=== PATIENT | male | born 1965 | race Two or more races ===

== ENCOUNTER 2022-09-25 11:11 | Day surgery (SDC) | payer OTHER ==
[2022-09-24 11:02] LABS: Basophils # (auto) 0 10 ^3/uL (0-0.2); Basophils % (auto) 0.3 % (0.0-2.0); Eosinophils # (auto) 0.1 10 ^3/uL (0-0.8); Eosinophils % (auto) 2.1 % (0.0-7.0); Hematocrit 39.6 % (41.0-53.0); Hemoglobin 13.6 g/dL (13.5-17.5); Lymphocytes # (auto) 1.4 10 ^3/uL (0.4-5.4); Lymphocytes % (auto) 23.8 % (10.0-50.0); Mean Corpuscular Hemoglobin 30.3 pg (28.0-32.0); Mean Corpuscular Hgb Conc. 34.3 g/dL (32.0-36.0); Mean Corpuscular Volume 88.3 fL (80.0-100.0); Monocytes # (auto) 0.6 10 ^3/uL (0-1.3); Monocytes % (auto) 9.4 % (0.0-12.0); Neutrophils # (auto) 3.8 10 ^3/uL (1.6-8.6); Neutrophils % (auto) 64.4 % (37.0-80.0); Red Blood Cells 4.48 10^6/uL (4.5-5.90); Red Cell Distribution Width 13.6 % (11.8-14.3); White Blood Cell 5.9 10^3/uL (4.4-10.8)
[2022-09-24 11:11] LABS: Albumin 3.8 g/dL (3.4-5.0); Calcium 8.7 mg/dL (8.5-10.1); Potassium 4.2 mmol/L (3.5-5.1)
[2022-09-24 11:16] LABS: Bilirubin, Total 0.3 mg/dL (0.2-1.0); Total Protein 7.8 g/dL (6.4-8.2)
[2022-09-24 11:41] LABS: Urine Bacteria NONE SEEN /hpf (None Seen); Urine Blood TRACE /uL (Negative); Urine Hyaline Cast FEW /lpf (0 - 2); Urine Mucus FEW (None Seen); Urine Specific Gravity 1.022 (1.001-1.035); Urine WBC 1 /hpf (0 - 3)
[2022-09-24 11:53] LABS: INR 0.95 (0.9-1.15); Partial Thromboplastin Time 44.2 sec (24.6-33.4)
[2022-09-24 14:53] LABS: BUN/Creatinine Ratio 16.3
[~2022-09-25] VITALS: Ht 175.3 cm; Wt 114.8 kg
[~2022-09-25 11:11] MED LIST: BICA50TA41 PO; LISI-285
[2022-09-25] MEDS ORDERED: CIPROFLOXACIN 400MG/200ML 200 ML IV ONE (12:43)
[2022-09-25] MEDS ORDERED: LIDOCAINE 2%HCL (LOCAL ANESTH.) INJ 10ml MDV ONE (12:51)
[2022-09-25] MEDS ORDERED: LIDOCAINE 2% (LOCAL ANESTH.) PF 5ml SDV ONE (13:10)
[2022-09-25] MEDS ORDERED: KETOROLAC TROMETH 30 MG/ML 1ML VIAL ONE (13:10)
[2022-09-25] MEDS ORDERED: GLYCOPYRROLATE 0.2 MG/ML 1ML VIAL ONE (13:10)
[2022-09-25] MEDS ORDERED: DexAMETHasone SOD PHOS 10MG/1ML VIAL INJ ONE (13:10)
[2022-09-25] MEDS ORDERED: ONDANSETRON HCL 4 MG/2 ML VIAL ONE (13:10)
[2022-09-25] MEDS ORDERED: PROPOFOL 10 MG/ML 20 ML IV ONE ×2 (13:10→13:19)
[2022-09-25] MEDS ORDERED: ePHEDrine SULFATE 50 MG/ML AMP ONE (13:32)
[2022-09-25] MEDS ORDERED: SODIUM CHLORIDE LOCK 10 ML ONE (13:32)
[2022-09-25] MEDS ORDERED: NALOXONE HCL 0.4 MG/ML VIAL IV PRN (15:00)
[2022-09-25] MEDS ORDERED: ePHEDrine SULFATE 50 MG/ML AMP IV PRN (15:00)
[2022-09-25] MEDS ORDERED: hydrALAZINE HCL 20 MG/ML VL IV PRN (15:00)
[2022-09-25] MEDS ORDERED: fentaNYL CITRATE 100 MCG/2 ML VL IV PRN (15:00)
[2022-09-25] MEDS ORDERED: LABETALOL HCL 5 MG/ML 4ML SYRINGE IV PRN (15:00)
[2022-09-25] MEDS ORDERED: ONDANSETRON HCL 4 MG/2 ML VIAL IV PRN (15:00)
[2022-09-25] MEDS ORDERED: FLUMAZENIL 0.1 MG/ML INJ 10ML MDV IV PRN (15:00)
[2022-09-25] MEDS ORDERED: HYDROmorphone HCL 2 MG/ML VL/or syr IV PRN (15:00)
[2022-09-25 15:03] VITALS: BP 143/68
== END 2022-09-25 15:45 | disposition home or self-care (01) ==
LOC: SUR 11:11
PROVIDERS: ATTEND Urology
DX: N21.0 Calculus in bladder (principal); N35.819 Other urethral stricture, male, unspecified site; Z85.46 Personal history of malignant neoplasm of prostate; Z20.822 Contact with and (suspected) exposure to COVID-19
CPT/HCPCS: 36415; 52276; 74176; 80053; 81001; 82962; 85025; 85610; 85730; 87086; 88300; J0744; J1100; J1885; J2001; J2405; J2704; U0003

== ENCOUNTER 2024-04-13 12:09 | Inpatient (IN) | payer OTHER ==
[~2024-04-13] VITALS: Ht 30.5 cm; Wt 111.3 kg
[2024-04-13 12:39] LABS: Urine Bacteria FEW /hpf (None Seen); Urine Blood 3+ /uL (Negative); Urine Clarity Ex.Turbid (Clear); Urine Color Dark-Brown (Yellow); Urine Mucus FEW (None Seen); Urine Protein, UAD 1+ (Negative); Urine Specific Gravity 1.024 (1.001-1.035); Urine Urobilinogen Normal (Negative); Urine WBC 219 /hpf (0 - 3); Urine WBC Clumps PRESENT /hpf (None Seen)
[2024-04-13 13:36] LABS: Basophils # (auto) 0 10 ^3/uL (0-0.2); Eosinophils # (auto) 0 10 ^3/uL (0-0.8); Lymphocytes # (auto) 0.6 10 ^3/uL (0.4-5.4); Monocytes # (auto) 0.6 10 ^3/uL (0-1.3); Nucleated Red Blood Cells % 0.1 %; White Blood Cell 3.9 10^3/uL (4.4-10.8)
[2024-04-13 13:38] LABS: Basophils % (auto) 0.2 % (0.0-2.0); Eosinophils % (auto) 0.1 % (0.0-7.0); Hematocrit 37.6 % (41.0-53.0); Hemoglobin 11.9 g/dL (13.5-17.5); Lymphocytes % (auto) 15.2 % (10.0-50.0); Mean Corpuscular Hemoglobin 23.4 pg (28.0-32.0); Mean Corpuscular Hgb Conc. 31.8 g/dL (32.0-36.0); Mean Corpuscular Volume 73.7 fL (80.0-100.0); Monocytes % (auto) 16.7 % (0.0-12.0); Neutrophils # (auto) 2.6 10 ^3/uL (1.6-8.6); Neutrophils % (auto) 67.8 % (37.0-80.0)
[2024-04-13] MEDS: cefTRIAXone 1GM/50ML D5W 50 ML IV ONE (13:46)
[2024-04-13] MEDS: ONDANSETRON HCL 4 MG/2 ML VIAL IV ONE (13:47)
[2024-04-13] MEDS: SODIUM CHLORIDE 0.9% 1,000 ML IV ONE (13:47)
[2024-04-13 13:53] VITALS: PULSE 81; RESP 14; O2SAT 97
[2024-04-13 14:01] LABS: Lactic Acid w/Reflex 3.3 mmol/L (0.4-2.0)
[2024-04-13 14:28] LABS: Alanine Aminotransferase 18 U/L (7-40); Albumin 4.7 g/dL (3.2-4.8); Alkaline Phosphatase 77 U/L (46-116); Anion Gap 13 (5-15); Aspartate Aminotransferase 13 U/L (13-40); BUN/Creatinine Ratio 19.3 (10.0-20.0); Bilirubin, Total 0.7 mg/dL (0.2-1.0); Blood Urea Nitrogen 29 mg/dL (9-23); Calcium 9.4 mg/dL (8.7-10.4); Carbon Dioxide 21 mmol/L (20-30); Chloride 104 mmol/L (98-107); Glucose 198 mg/dL (74-106); Lipase 27 U/L (12-53); Potassium 4.1 mmol/L (3.5-5.1); Sodium 138 mmol/L (136-145); Total Protein 8.2 g/dL (5.7-8.2)
[2024-04-13] MEDS: fentaNYL CITRATE 100 MCG/2 ML VL IV ONE (15:39)
[2024-04-13] MEDS: LACTATED RINGER'S 1,000 ML IV ONE (17:57)
[2024-04-13] MEDS: PANTOPRAZOLE 40 MG/10 ML VIAL INJ IV SCH (17:57)
[2024-04-13 18:00] VITALS: PULSE 103; RESP 25; O2SAT 96
[2024-04-13] MEDS: metroNIDAZOLE 500MG/100ML 100 ML IV SCH (18:33)
[2024-04-13] MEDS: ONDANSETRON HCL 4 MG/2 ML VIAL IV PRN (21:08)
[2024-04-13] MEDS: D5W/LACTATED RINGERS 1,000 ML IV ONE (21:09)
[2024-04-13] MEDS: HYDROmorphone HCL 2 MG/ML VL/or syr IV PRN (21:09)
[2024-04-13 21:59] VITALS: O2SAT 95
[2024-04-13] MEDS: SODIUM CHLOR 0.9% PF (SALINE LOCK) 10ML VIAL/SYR IV SCH (22:05)
[2024-04-13 22:48] VITALS: BP 132/58; PULSE 92; RESP 18; TEMP 98.5; O2SAT 93
[2024-04-14] VITALS (8 sets, daily range): BP systolic 112–149; BP diastolic 65–76; PULSE 87–107; RESP 16–20; TEMP 98.1–99.2; O2SAT 95–100
[2024-04-14] MEDS ORDERED: GASTROGRAFIN 120 ML SOL ONE (09:10)
[2024-04-14] MEDS: cefTRIAXone 1GM/50ML D5W 50 ML IV SCH (11:15)
[2024-04-14 11:39] LABS: Anion Gap 7 (5-15); Carbon Dioxide 25 mmol/L (20-30); Chloride 110 mmol/L (98-107); Potassium 3.7 mmol/L (3.5-5.1); Sodium 142 mmol/L (136-145)
[2024-04-14 11:40] LABS: Calcium 9.2 mg/dL (8.7-10.4)
[2024-04-14 11:46] LABS: BUN/Creatinine Ratio 26.1 (10.0-20.0); Blood Urea Nitrogen 24 mg/dL (9-23); Glucose 139 mg/dL (74-106)
[2024-04-14] MEDS: SOD CHL 0.45% 1,000 ML IV SCH (17:45)
[2024-04-14] MEDS ORDERED: hydrALAZINE HCL 20 MG/ML VL IV PRN (19:15)
[2024-04-14] MEDS ORDERED: DEXTROSE (50%) 50ML SYRG IV PRN (19:15)
[2024-04-14] MEDS: InsuLIN REG 1unit/0.01ml Soln (100units/ml) SC SCH (22:00)
[2024-04-14] MEDS: ACCU-CHEK COMFORT CURVE STRIP VI SCH (22:42)
[2024-04-15] VITALS (9 sets, daily range): BP systolic 105–137; BP diastolic 55–98; PULSE 70–92; RESP 16–20; TEMP 97.7–98.7; O2SAT 95–97
[2024-04-15 06:34] LABS: Hemoglobin 8.9 g/dL (13.5-17.5); White Blood Cell 3.9 10^3/uL (4.4-10.8)
[2024-04-15 06:37] LABS: Mean Corpuscular Hemoglobin 23.5 pg (28.0-32.0); Mean Corpuscular Hgb Conc. 31.9 g/dL (32.0-36.0); Mean Corpuscular Volume 73.9 fL (80.0-100.0); Red Blood Cells 3.79 10^6/uL (4.5-5.90); Red Cell Distribution Width 19.9 % (11.8-14.3)
[2024-04-15 06:50] LABS: Anion Gap 6 (5-15); Carbon Dioxide 26 mmol/L (20-30); Chloride 109 mmol/L (98-107); Potassium 3.5 mmol/L (3.5-5.1); Sodium 141 mmol/L (136-145)
[2024-04-15 06:51] LABS: Calcium 8.5 mg/dL (8.7-10.4)
[2024-04-15 06:54] LABS: Band Neutrophils % (manual) 0; Basophils % (manual) 0 (0.0-2.0); Blast Cells 0; Metamyelocytes % 0; Myelocytes % 0; Promyelocytes % 0; Reactive Lymphocytes 0
[2024-04-15 06:56] LABS: BUN/Creatinine Ratio 24.4 (10.0-20.0); Blood Urea Nitrogen 19 mg/dL (9-23); Glucose 109 mg/dL (74-106)
[2024-04-15 08:02] LABS: Hypochromia Slight; Platelet Estimate Adequate
[2024-04-15 08:19] LABS: Eosinophils % (manual) 4 (0-7); Lymphocytes % (manual) 23 (10.0-50.0); Monocytes % (manual) 9 (0-12)
[2024-04-15 15:49] LABS: Basophils # (auto) 0 10 ^3/uL (0-0.2); Basophils % (auto) 0.5 % (0.0-2.0); Eosinophils # (auto) 0.2 10 ^3/uL (0-0.8); Hematocrit 29.2 % (41.0-53.0); Hemoglobin 9.1 g/dL (13.5-17.5); Lymphocytes # (auto) 1.7 10 ^3/uL (0.4-5.4); Lymphocytes % (auto) 35.5 % (10.0-50.0); Mean Corpuscular Hemoglobin 23.2 pg (28.0-32.0); Mean Corpuscular Hgb Conc. 31.1 g/dL (32.0-36.0); Mean Corpuscular Volume 74.4 fL (80.0-100.0); Monocytes # (auto) 0.8 10 ^3/uL (0-1.3); Monocytes % (auto) 15.5 % (0.0-12.0); Neutrophils # (auto) 2.2 10 ^3/uL (1.6-8.6); Neutrophils % (auto) 44.5 % (37.0-80.0); Nucleated Red Blood Cells % 0.2 %; Red Blood Cells 3.93 10^6/uL (4.5-5.90); White Blood Cell 4.9 10^3/uL (4.4-10.8)
[2024-04-15] MEDS: PANTOPRAZOLE 40 MG TAB PO ONE (19:23)
[2024-04-16] VITALS (7 sets, daily range): BP systolic 119–154; BP diastolic 65–84; PULSE 65–80; RESP 20; TEMP 36.9; O2SAT 95–97
[2024-04-16] MEDS: PANTOPRAZOLE 40 MG TAB PO SCH (06:07)
[2024-04-16 07:29] LABS: Calcium 8.4 mg/dL (8.7-10.4); Chloride 106 mmol/L (98-107); Potassium 3.4 mmol/L (3.5-5.1); Sodium 139 mmol/L (136-145)
[2024-04-16 07:30] LABS: Anion Gap 8 (5-15); Carbon Dioxide 25 mmol/L (20-30)
[2024-04-16 07:35] LABS: BUN/Creatinine Ratio 15.5 (10.0-20.0); Blood Urea Nitrogen 11 mg/dL (9-23); Glucose 114 mg/dL (74-106)
[2024-04-16 07:36] LABS: Basophils # (auto) 0 10 ^3/uL (0-0.2); Basophils % (auto) 0.2 % (0.0-2.0); Eosinophils # (auto) 0.1 10 ^3/uL (0-0.8); Eosinophils % (auto) 2.8 % (0.0-7.0); Hematocrit 28.7 % (41.0-53.0); Hemoglobin 9.2 g/dL (13.5-17.5); Lymphocytes # (auto) 1.3 10 ^3/uL (0.4-5.4); Lymphocytes % (auto) 26.3 % (10.0-50.0); Mean Corpuscular Hemoglobin 23.7 pg (28.0-32.0); Mean Corpuscular Hgb Conc. 32.2 g/dL (32.0-36.0); Mean Corpuscular Volume 73.5 fL (80.0-100.0); Monocytes # (auto) 0.6 10 ^3/uL (0-1.3); Monocytes % (auto) 11.9 % (0.0-12.0); Neutrophils # (auto) 2.9 10 ^3/uL (1.6-8.6); Neutrophils % (auto) 58.8 % (37.0-80.0); Nucleated Red Blood Cells % 0.1 %; Red Cell Distribution Width 19.6 % (11.8-14.3)
[2024-04-16 14:17] LABS: % Iron Saturation 7.4 % (20-55)
[2024-04-16] MEDS: POTASSIUM CHL 20 Meq TABLET PO ONE (16:21)
[2024-04-16] MEDS ORDERED: PANT40TA2 PO (22:39)
[2024-04-16] MEDS ORDERED: CEFD300C2 PO (22:39)
== END 2024-04-16 17:40 | disposition home or self-care (01) | DRG 388 ==
LOC: ER 12:09 → TELE 17:11 → TELE-WESTW 22:10
PROVIDERS: ADMIT Internal Medicine; ATTEND Internal Medicine
DX: K56.7 Ileus, unspecified (principal); N17.0 Acute kidney failure with tubular necrosis; N30.01 Acute cystitis with hematuria; K52.9 Noninfective gastroenteritis and colitis, unspecified; N42.89 Other specified disorders of prostate; I10 Essential (primary) hypertension; E11.9 Type 2 diabetes mellitus without complications; N62 Hypertrophy of breast; Z90.79 Acquired absence of other genital organ(s); Z80.1 Family history of malignant neoplasm of trachea, bronchus and lung; Z85.46 Personal history of malignant neoplasm of prostate
CPT/HCPCS: 36415; 71045; 74176; 74250; 80048; 80053; 81001; 82270; 82962; 83540; 83550; 83605; 83690; 84484; 85007; 85025; 85027; 96365; G0378; J2405; J2470; J3490

== ENCOUNTER 2024-04-19 16:59 | Inpatient (IN) | payer OTHER ==
[~2024-04-19] VITALS: Ht 175.3 cm; Wt 104.5 kg
[~2024-04-19 16:59] MED LIST changes: +CEFD300C2 PO; +PANT40TA2 PO
[2024-04-19 17:40] VITALS: PULSE 104; RESP 18; O2SAT 98
[2024-04-19 18:33] LABS: Basophils # (auto) 0 10 ^3/uL (0-0.2); Eosinophils # (auto) 0 10 ^3/uL (0-0.8); Hematocrit 36.5 % (41.0-53.0); Hemoglobin 11.4 g/dL (13.5-17.5); Lymphocytes # (auto) 0.9 10 ^3/uL (0.4-5.4); Mean Corpuscular Hemoglobin 23.1 pg (28.0-32.0); Mean Corpuscular Hgb Conc. 31.4 g/dL (32.0-36.0); Mean Corpuscular Volume 73.6 fL (80.0-100.0); Monocytes # (auto) 0.5 10 ^3/uL (0-1.3); Monocytes % (auto) 5.6 % (0.0-12.0); Neutrophils # (auto) 8.3 10 ^3/uL (1.6-8.6); Neutrophils % (auto) 85.4 % (37.0-80.0); Nucleated Red Blood Cells % 0.1 %; Platelet Count (auto) 307 10^3/uL (140-450); Red Blood Cells 4.95 10^6/uL (4.5-5.90); White Blood Cell 9.7 10^3/uL (4.4-10.8)
[2024-04-19 18:35] LABS: Red Cell Distribution Width 20.3 % (11.8-14.3)
[2024-04-19 19:03] LABS: Alanine Aminotransferase 27 U/L (7-40); Albumin 4.4 g/dL (3.2-4.8); Alkaline Phosphatase 64 U/L (46-116); Anion Gap 11 (5-15); Aspartate Aminotransferase 12 U/L (13-40); BUN/Creatinine Ratio 13.1 (10.0-20.0); Blood Urea Nitrogen 14 mg/dL (9-23); Calcium 9.3 mg/dL (8.7-10.4); Carbon Dioxide 23 mmol/L (20-30); Chloride 104 mmol/L (98-107); Glucose 161 mg/dL (74-106); Lipase 49 U/L (12-53); Potassium 4.2 mmol/L (3.5-5.1); Sodium 138 mmol/L (136-145)
[2024-04-19 19:04] LABS: Bilirubin, Total 0.5 mg/dL (0.2-1.0); Total Protein 7.3 g/dL (5.7-8.2)
[2024-04-19] MEDS: ONDANSETRON HCL 4 MG/2 ML VIAL IV ONE (20:19)
[2024-04-19] MEDS: SODIUM CHLORIDE 0.9% 1,000 ML IV ONE (20:21)
[2024-04-19] MEDS: MORPHINE SULFATE 4 MG/ML SYR/VIAL IV ONE (20:21)
[2024-04-19] MEDS ORDERED: DEXTROSE (50%) 50ML SYRG IV PRN (23:30)
[2024-04-19] MEDS: PANTOPRAZOLE 40 MG/10 ML VIAL INJ IV ONE (23:45)
[2024-04-19] MEDS: SODIUM CHLORIDE 0.9% 1,000 ML IV SCH (23:45)
[2024-04-20] VITALS (7 sets, daily range): BP systolic 133–157; BP diastolic 72–86; PULSE 70–94; RESP 17–18; TEMP 97.7–98.5; O2SAT 95–99
[2024-04-20] MEDS: MORPHINE SULFATE INJ 2 MG/ml SYRG IV PRN (01:53)
[2024-04-20 06:52] LABS: Basophils # (auto) 0 10 ^3/uL (0-0.2); Basophils % (auto) 0.2 % (0.0-2.0); Eosinophils # (auto) 0.1 10 ^3/uL (0-0.8); Eosinophils % (auto) 0.8 % (0.0-7.0); Hematocrit 33.1 % (41.0-53.0); Hemoglobin 10.3 g/dL (13.5-17.5); Lymphocytes # (auto) 1.2 10 ^3/uL (0.4-5.4); Lymphocytes % (auto) 13.6 % (10.0-50.0); Mean Corpuscular Hgb Conc. 31.2 g/dL (32.0-36.0); Mean Corpuscular Volume 73.7 fL (80.0-100.0); Monocytes # (auto) 0.9 10 ^3/uL (0-1.3); Monocytes % (auto) 10.7 % (0.0-12.0); Neutrophils # (auto) 6.4 10 ^3/uL (1.6-8.6); Neutrophils % (auto) 74.7 % (37.0-80.0); Platelet Count (auto) 274 10^3/uL (140-450); White Blood Cell 8.6 10^3/uL (4.4-10.8)
[2024-04-20 06:53] LABS: Red Cell Distribution Width 20.3 % (11.8-14.3)
[2024-04-20] MEDS: InsuLIN REG 1unit/0.01ml Soln (100units/ml) SC SCH (07:00)
[2024-04-20 07:05] LABS: Chloride 107 mmol/L (98-107); Potassium 3.8 mmol/L (3.5-5.1); Sodium 139 mmol/L (136-145)
[2024-04-20 07:06] LABS: Anion Gap 7 (5-15); Carbon Dioxide 25 mmol/L (20-30)
[2024-04-20 07:07] LABS: Calcium 8.8 mg/dL (8.7-10.4)
[2024-04-20 07:11] LABS: BUN/Creatinine Ratio 16.5 (10.0-20.0); Blood Urea Nitrogen 13 mg/dL (9-23); Glucose 134 mg/dL (74-106)
[2024-04-20] MEDS: ACCU-CHEK COMFORT CURVE STRIP VI SCH (07:55)
[2024-04-20] MEDS: PANTOPRAZOLE 40 MG/10 ML VIAL INJ IV SCH (09:21)
[2024-04-20] MEDS: GASTROGRAFIN 120 ML SOL ONE (10:56)
[2024-04-20] MEDS: metroNIDAZOLE 500MG/100ML 100 ML IV ONE (12:14)
[2024-04-20] MEDS: cefTRIAXone 1GM/50ML D5W 50 ML IV ONE (12:14)
[2024-04-20] MEDS: metroNIDAZOLE 500MG/100ML 100 ML IV SCH (14:00)
[2024-04-20] MEDS: ONDANSETRON HCL 4 MG/2 ML VIAL IV PRN (17:39)
[2024-04-20 18:00] LABS: Urine Bacteria FEW /hpf (None Seen); Urine Blood Negative /uL (Negative); Urine Clarity Turbid (Clear); Urine Color Yellow (Yellow); Urine Mucus FEW (None Seen); Urine Protein, UAD TRACE (Negative); Urine Specific Gravity 1.027 (1.001-1.035); Urine Urobilinogen Normal (Negative); Urine WBC 5 /hpf (0 - 3)
[2024-04-21] VITALS (8 sets, daily range): BP systolic 127–169; BP diastolic 72–99; PULSE 74–99; RESP 18–20; TEMP 97.3–99.3; O2SAT 95–100
[2024-04-21 05:58] LABS: Basophils # (auto) 0 10 ^3/uL (0-0.2); Basophils % (auto) 0.3 % (0.0-2.0); Eosinophils # (auto) 0.1 10 ^3/uL (0-0.8); Eosinophils % (auto) 1.1 % (0.0-7.0); Hematocrit 34.3 % (41.0-53.0); Lymphocytes # (auto) 1.5 10 ^3/uL (0.4-5.4); Lymphocytes % (auto) 18.2 % (10.0-50.0); Mean Corpuscular Hemoglobin 23.7 pg (28.0-32.0); Mean Corpuscular Hgb Conc. 31.9 g/dL (32.0-36.0); Mean Corpuscular Volume 74.1 fL (80.0-100.0); Monocytes # (auto) 0.9 10 ^3/uL (0-1.3); Monocytes % (auto) 10.4 % (0.0-12.0); Neutrophils # (auto) 5.9 10 ^3/uL (1.6-8.6); Nucleated Red Blood Cells % 0.1 %; Platelet Count (auto) 298 10^3/uL (140-450); Red Blood Cells 4.63 10^6/uL (4.5-5.90); White Blood Cell 8.4 10^3/uL (4.4-10.8)
[2024-04-21 05:59] LABS: Red Cell Distribution Width 20.4 % (11.8-14.3)
[2024-04-21 06:23] LABS: Alanine Aminotransferase 19 U/L (7-40); Albumin 4.4 g/dL (3.2-4.8); Alkaline Phosphatase 59 U/L (46-116); Anion Gap 10 (5-15); Aspartate Aminotransferase 10 U/L (13-40); BUN/Creatinine Ratio 15.8 (10.0-20.0); Bilirubin, Total 0.4 mg/dL (0.2-1.0); Blood Urea Nitrogen 12 mg/dL (9-23); Calcium 9.3 mg/dL (8.7-10.4); Carbon Dioxide 22 mmol/L (20-30); Chloride 107 mmol/L (98-107); Glucose 120 mg/dL (74-106); Sodium 139 mmol/L (136-145); Total Protein 7.2 g/dL (5.7-8.2)
[2024-04-21] MEDS: cefTRIAXone 1GM/50ML D5W 50 ML IV SCH (08:39)
[2024-04-21] MEDS: GOLYTELY 4L KIT PO ONE (11:08)
[2024-04-21] MEDS: POLYETHYLENE GLYCOL 17 GM PWDR PO ONE (11:08)
[2024-04-21] MEDS: FLEET ENEMA(ADULT) 135 ML PR ONE (18:34)
[2024-04-21 21:40] LABS: Alanine Aminotransferase 19 U/L (7-40); Albumin 4.2 g/dL (3.2-4.8); Alkaline Phosphatase 61 U/L (46-116); Anion Gap 11 (5-15); Aspartate Aminotransferase 18 U/L (13-40); BUN/Creatinine Ratio 14.9 (10.0-20.0); Bilirubin, Total 0.5 mg/dL (0.2-1.0); Blood Urea Nitrogen 11 mg/dL (9-23); Calcium 9.1 mg/dL (8.7-10.4); Carbon Dioxide 22 mmol/L (20-30); Chloride 104 mmol/L (98-107); Glucose 124 mg/dL (74-106); Potassium 3.9 mmol/L (3.5-5.1); Sodium 137 mmol/L (136-145)
[2024-04-21 22:16] LABS: Basophils # (auto) 0 10 ^3/uL (0-0.2); Basophils % (auto) 0.1 % (0.0-2.0); Eosinophils # (auto) 0 10 ^3/uL (0-0.8); Eosinophils % (auto) 0.4 % (0.0-7.0); Hemoglobin 11.2 g/dL (13.5-17.5); Lymphocytes # (auto) 1.1 10 ^3/uL (0.4-5.4); Lymphocytes % (auto) 8.2 % (10.0-50.0); Mean Corpuscular Hemoglobin 23.2 pg (28.0-32.0); Mean Corpuscular Hgb Conc. 31.1 g/dL (32.0-36.0); Mean Corpuscular Volume 74.7 fL (80.0-100.0); Monocytes % (auto) 8.1 % (0.0-12.0); Neutrophils # (auto) 10.7 10 ^3/uL (1.6-8.6); Neutrophils % (auto) 83.2 % (37.0-80.0); Platelet Count (auto) 298 10^3/uL (140-450); Red Blood Cells 4.82 10^6/uL (4.5-5.90); White Blood Cell 12.9 10^3/uL (4.4-10.8)
[2024-04-21] MEDS: hydrALAZINE HCL 20 MG/ML VL IV PRN (22:32)
[2024-04-21 22:36] LABS: Red Cell Distribution Width 20.4 % (11.8-14.3)
[2024-04-22] VITALS (8 sets, daily range): BP systolic 101–157; BP diastolic 70–92; PULSE 8–109; RESP 16–20; TEMP 98–98.3; O2SAT 95–99
[2024-04-22] MEDS: MAGNESIUM CITRATE SOLUTION 300 ML BTL PO ONE ×2 (05:52→11:21)
[2024-04-22] MEDS: GOLYTELY 4L KIT PO ONE (05:54)
[2024-04-22 08:05] LABS: Basophils # (auto) 0 10 ^3/uL (0-0.2); Basophils % (auto) 0.2 % (0.0-2.0); Eosinophils # (auto) 0.1 10 ^3/uL (0-0.8); Eosinophils % (auto) 1.2 % (0.0-7.0); Hematocrit 34.7 % (41.0-53.0); Hemoglobin 11.1 g/dL (13.5-17.5); Lymphocytes # (auto) 1.3 10 ^3/uL (0.4-5.4); Lymphocytes % (auto) 12.5 % (10.0-50.0); Mean Corpuscular Hemoglobin 23.9 pg (28.0-32.0); Mean Corpuscular Hgb Conc. 31.9 g/dL (32.0-36.0); Mean Corpuscular Volume 74.9 fL (80.0-100.0); Monocytes # (auto) 0.9 10 ^3/uL (0-1.3); Monocytes % (auto) 8.7 % (0.0-12.0); Neutrophils # (auto) 7.9 10 ^3/uL (1.6-8.6); Neutrophils % (auto) 77.4 % (37.0-80.0); Platelet Count (auto) 256 10^3/uL (140-450); Red Blood Cells 4.63 10^6/uL (4.5-5.90); White Blood Cell 10.2 10^3/uL (4.4-10.8)
[2024-04-22 08:09] LABS: Red Cell Distribution Width 20.9 % (11.8-14.3)
[2024-04-22 08:24] LABS: Alanine Aminotransferase 14 U/L (7-40); Albumin 4.1 g/dL (3.2-4.8); Alkaline Phosphatase 56 U/L (46-116); Anion Gap 8 (5-15); Aspartate Aminotransferase 10 U/L (13-40); BUN/Creatinine Ratio 17.1 (10.0-20.0); Blood Urea Nitrogen 12 mg/dL (9-23); Calcium 9.1 mg/dL (8.7-10.4); Carbon Dioxide 23 mmol/L (20-30); Chloride 106 mmol/L (98-107); Glucose 110 mg/dL (74-106); Potassium 3.5 mmol/L (3.5-5.1); Sodium 137 mmol/L (136-145)
[2024-04-22 08:25] LABS: Bilirubin, Total 0.4 mg/dL (0.2-1.0); Total Protein 6.9 g/dL (5.7-8.2)
[2024-04-22] MEDS ORDERED: PROPOFOL 10 MG/ML 20 ML IV ONE ×2 (16:15→16:33)
[2024-04-22] MEDS ORDERED: LIDOCAINE 2% (LOCAL ANESTH.) PF 5ml SDV ONE (16:15)
[2024-04-22] MEDS: LIDOCAINE VISCOUS 2% 15ML UD ONE (18:04)
[2024-04-23 05:00] VITALS: BP 148/87; PULSE 83; RESP 18; TEMP 97.5; O2SAT 95
[2024-04-23] MEDS: FLEET MINERAL OIL ENEMA 133 ML PR ONE (08:15)
[2024-04-23] MEDS ORDERED: DEXTROSE (50%) 50ML SYRG IV SCH (08:30)
[2024-04-23] MEDS ORDERED: TPN PER PHARMACY 0 ML IV SCH (08:30)
[2024-04-23 09:01] VITALS: BP 152/85; PULSE 95; RESP 18; TEMP 98.6; O2SAT 98
[2024-04-23 09:15] LABS: Phosphorus 2.7 mg/dL (2.4-5.1)
[2024-04-23 09:19] LABS: INR 1.14 (0.9-1.15); Partial Thromboplastin Time 39.1 SEC (24.5-34.5)
[2024-04-23] MEDS: InsuLIN REG 1unit/0.01ml Soln (100units/ml) SC SCH (12:00)
[2024-04-23 12:46] VITALS: BP 128/76; PULSE 95; RESP 17; TEMP 99; O2SAT 98
[2024-04-23] MEDS: D5W/SOD CHL 0.45%/KCL 20MEQ 1,000 ML IV SCH (13:49)
[2024-04-23] MEDS: ACCU-CHEK COMFORT CURVE STRIP VI SCH (13:50)
[2024-04-23 17:05] VITALS: BP 135/82; PULSE 92; RESP 20; TEMP 98.1; O2SAT 98
[2024-04-23] MEDS: LIDOCAINE 1% (LOCAL ANESTH.) PF 5ml SDV ID ONE (18:29)
[2024-04-23] MEDS: AMINO ACID INFUSION IN D10W 1,000 ML IV ONE (20:01)
[2024-04-23 21:00] VITALS: BP 147/87; PULSE 104; RESP 15; TEMP 98.7; O2SAT 97
[2024-04-23] MEDS: SODIUM CHLOR 0.9% PF (SALINE LOCK) 10ML VIAL/SYR IV SCH (23:35)
[2024-04-24] VITALS (7 sets, daily range): BP systolic 115–147; BP diastolic 60–93; PULSE 82–108; RESP 16–20; TEMP 97.8–98.4; O2SAT 96–98
[2024-04-24] MEDS: ACETAMINOPHEN 325 MG TAB PO PRN (01:10)
[2024-04-24 07:41] LABS: Alanine Aminotransferase 14 U/L (7-40); Albumin 4.1 g/dL (3.2-4.8); Alkaline Phosphatase 55 U/L (46-116); Aspartate Aminotransferase 10 U/L (13-40); Bilirubin, Total 0.4 mg/dL (0.2-1.0); Glucose 147 mg/dL (74-106); Magnesium 2.1 mg/dL (1.6-2.6); Phosphorus 3.1 mg/dL (2.4-5.1); Total Protein 6.7 g/dL (5.7-8.2)
[2024-04-24 07:43] LABS: Chloride 103 mmol/L (98-107); Potassium 3.6 mmol/L (3.5-5.1); Sodium 137 mmol/L (136-145)
[2024-04-24 07:47] LABS: Calcium 9.4 mg/dL (8.7-10.4)
[2024-04-24 08:22] LABS: Anion Gap 10 (5-15); BUN/Creatinine Ratio 10.4 (10.0-20.0); Blood Urea Nitrogen 8 mg/dL (9-23); Carbon Dioxide 24 mmol/L (20-30)
[2024-04-24] MEDS: GOLYTELY 4L KIT PO ONE (08:51)
[2024-04-24] MEDS: TPN PER PHARMACY IV NR (20:39)
[2024-04-25] VITALS (58 sets, daily range): BP systolic 72–190; BP diastolic 30–97; PULSE 78–148; RESP 11–27; TEMP 98–99.3; O2SAT 95–100
[2024-04-25 06:06] LABS: Alanine Aminotransferase 12 U/L (7-40); Alkaline Phosphatase 47 U/L (46-116); Anion Gap 7 (5-15); BUN/Creatinine Ratio 10.7 (10.0-20.0); Blood Urea Nitrogen 8 mg/dL (9-23); Calcium 8.8 mg/dL (8.7-10.4); Carbon Dioxide 24 mmol/L (20-30); Chloride 106 mmol/L (98-107); Glucose 147 mg/dL (74-106); Potassium 3.4 mmol/L (3.5-5.1); Sodium 137 mmol/L (136-145)
[2024-04-25 06:07] LABS: Albumin 3.6 g/dL (3.2-4.8); Aspartate Aminotransferase 9 U/L (13-40)
[2024-04-25 06:08] LABS: Bilirubin, Total 0.4 mg/dL (0.2-1.0); Phosphorus 3.5 mg/dL (2.4-5.1); Total Protein 6.3 g/dL (5.7-8.2)
[2024-04-25 06:15] LABS: Basophils # (auto) 0 10 ^3/uL (0-0.2); Basophils % (auto) 0.2 % (0.0-2.0); Eosinophils # (auto) 0.1 10 ^3/uL (0-0.8); Eosinophils % (auto) 1.1 % (0.0-7.0); Hematocrit 30.9 % (41.0-53.0); Hemoglobin 10.3 g/dL (13.5-17.5); Lymphocytes # (auto) 1.4 10 ^3/uL (0.4-5.4); Lymphocytes % (auto) 14.5 % (10.0-50.0); Mean Corpuscular Hemoglobin 24.8 pg (28.0-32.0); Mean Corpuscular Hgb Conc. 33.2 g/dL (32.0-36.0); Mean Corpuscular Volume 74.5 fL (80.0-100.0); Monocytes # (auto) 0.7 10 ^3/uL (0-1.3); Monocytes % (auto) 7.5 % (0.0-12.0); Neutrophils # (auto) 7.2 10 ^3/uL (1.6-8.6); Neutrophils % (auto) 76.7 % (37.0-80.0); Platelet Count (auto) 242 10^3/uL (140-450); Red Blood Cells 4.15 10^6/uL (4.5-5.90); White Blood Cell 9.3 10^3/uL (4.4-10.8)
[2024-04-25 07:28] LABS: Magnesium 1.9 mg/dL (1.6-2.6)
[2024-04-25] MEDS: ceFAZolin 2 GM/D5W50ml 50 ML IV ONE (08:24)
[2024-04-25] MEDS: ACCU-CHEK COMFORT CURVE STRIP VI ONE (09:00)
[2024-04-25] MEDS ORDERED: MORPHINE SULFATE INJ 2 MG/ml SYRG IV PRN (09:00)
[2024-04-25] MEDS ORDERED: fentaNYL CITRATE 100 MCG/2 ML VL IV PRN (09:00)
[2024-04-25] MEDS: KETOROLAC TROMETH 30 MG/ML 1ML VIAL IV ONE (09:00)
[2024-04-25] MEDS ORDERED: HYDROmorphone HCL 2 MG/ML VL/or syr IV PRN ×2 (09:00)
[2024-04-25] MEDS: METOCLOPRAMIDE HCL 5MG/ml INJ 2ml VIAL IV ONE (09:00)
[2024-04-25] MEDS ORDERED: fentaNYL CITRATE 5 ML ONE (09:06)
[2024-04-25] MEDS ORDERED: MEPERIDINE HCL (50 MG/ML) 1 ML VIAL ONE ×2 (09:06→09:11)
[2024-04-25] MEDS ORDERED: MIDAZOLAM HCL 2MG/2ML 2ml VIAL (1mg/ml) ONE (09:06)
[2024-04-25] MEDS ORDERED: KETAMINE 50mg/ML 1ml syringe ONE (09:06)
[2024-04-25] MEDS ORDERED: LIDOCAINE HCL 2% TOP JELLY 5ML TOP ONE (09:07)
[2024-04-25] MEDS ORDERED: ROCURONIUM 10MG/ML 10ML VIAL IV ONE (09:07)
[2024-04-25] MEDS ORDERED: SODIUM CHLORIDE LOCK 10 ML ONE (09:07)
[2024-04-25] MEDS ORDERED: ONDANSETRON HCL 4 MG/2 ML VIAL ONE (09:07)
[2024-04-25] MEDS ORDERED: LIDOCAINE 1% INJ PF 5ML AMP ONE (09:07)
[2024-04-25] MEDS ORDERED: PROPOFOL 10 MG/ML 20 ML IV ONE (09:07)
[2024-04-25] MEDS ORDERED: fentaNYL CITRATE 100 MCG/2 ML VL ONE (10:56)
[2024-04-25] MEDS ORDERED: MEPERIDINE HCL (25 MG/ML) 1ML VIAL ONE (11:50)
[2024-04-25] MEDS: POVIDONE IODINE 10 % TOPICAL OINT 30GM TOP ONE (12:25)
[2024-04-25] MEDS: MIDAZOLAM DRIP 50 mg/50mL 50 ML IV SCH (13:00)
[2024-04-25] MEDS: fentaNYL Drip 2500mCg/250mlNS 250 ML IV SCH (13:30)
[2024-04-25] MEDS: NOREPINEPHRINE 8 MG/250ML KIT 250 ML IV ONE (14:53)
[2024-04-25] MEDS ORDERED: SUCCINYLCHOLINE CHLORIDE 20 MG/ML 10ML VIAL IV ONE (14:59)
[2024-04-25] MEDS: NOREPINEPHRINE 8 MG/250ML KIT 250 ML IV SCH (15:00)
[2024-04-25] MEDS: SODIUM CHLORIDE 0.9% 1,000 ML IV ONE ×3 (15:00→18:36)
[2024-04-25 15:01] LABS: Base Excess -5.9 mmol/L (-2.0-2.0)
[2024-04-25] MEDS: POTASSIUM CHL 20MEQ/100ML 100 ML IV ONE (16:33)
[2024-04-25] MEDS: TPN PER PHARMACY IV NR (20:00)
[2024-04-25] MEDS: PHENYLEPHRINE IV 250 ML IV SCH (22:15)
[2024-04-25 23:25] LABS: Alanine Aminotransferase 23 U/L (7-40); Alkaline Phosphatase 41 U/L (46-116); Anion Gap 8 (5-15); Aspartate Aminotransferase 18 U/L (13-40); BUN/Creatinine Ratio 5.5 (10.0-20.0); Bilirubin, Total 0.4 mg/dL (0.2-1.0); Blood Urea Nitrogen 10 mg/dL (9-23); Calcium 7.7 mg/dL (8.7-10.4); Carbon Dioxide 20 mmol/L (20-30); Chloride 111 mmol/L (98-107); Glucose 156 mg/dL (74-106); Potassium 5.3 mmol/L (3.5-5.1); Sodium 139 mmol/L (136-145); Total Protein 5.4 g/dL (5.7-8.2)
[2024-04-25] MEDS: ETOMIDATE (2MG/ML) 20ML VIAL IV ONE (23:27)
[2024-04-25] MEDS: SUCCINYLCHOLINE CHLORIDE 20 MG/ML 10ML VIAL IV ONE (23:27)
[2024-04-25 23:41] LABS: Basophils # (auto) 0 10 ^3/uL (0-0.2); Eosinophils # (auto) 0 10 ^3/uL (0-0.8); Hematocrit 36.9 % (41.0-53.0); Hemoglobin 11.2 g/dL (13.5-17.5); Lymphocytes # (auto) 0.6 10 ^3/uL (0.4-5.4); Mean Corpuscular Hemoglobin 23.5 pg (28.0-32.0); Mean Corpuscular Hgb Conc. 30.4 g/dL (32.0-36.0); Mean Corpuscular Volume 77.2 fL (80.0-100.0); Monocytes # (auto) 0.9 10 ^3/uL (0-1.3); Monocytes % (auto) 3.9 % (0.0-12.0); Neutrophils # (auto) 20.4 10 ^3/uL (1.6-8.6); Neutrophils % (auto) 93.1 % (37.0-80.0); Platelet Count (auto) 318 10^3/uL (140-450); Red Blood Cells 4.78 10^6/uL (4.5-5.90); White Blood Cell 21.9 10^3/uL (4.4-10.8)
[2024-04-25 23:42] LABS: Red Cell Distribution Width 20.6 % (11.8-14.3)
[2024-04-26] VITALS (105 sets, daily range): BP systolic 76–134; BP diastolic 42–75; PULSE 85–112; RESP 10–19; TEMP 98.4–100.7; O2SAT 95–100
[2024-04-26 00:06] LABS: Base Excess -7.4 mmol/L (-2.0-2.0)
[2024-04-26] MEDS: SODIUM CHLORIDE 0.9% 1,000 ML IV SCH (01:14)
[2024-04-26] MEDS: CALCIUM GLUC 1,000mg/50ml-NS 50 ML IV ONE ×2 (01:14→06:51)
[2024-04-26] MEDS: SODIUM BICARB 8.4% 50Meq/50ml SYR Vial IV ONE (01:14)
[2024-04-26 04:29] LABS: Basophils # (auto) 0 10 ^3/uL (0-0.2); Eosinophils # (auto) 0 10 ^3/uL (0-0.8); Hemoglobin 10.8 g/dL (13.5-17.5); Lymphocytes # (auto) 0.7 10 ^3/uL (0.4-5.4); Mean Corpuscular Hemoglobin 23.6 pg (28.0-32.0); Mean Corpuscular Hgb Conc. 30.2 g/dL (32.0-36.0); Mean Corpuscular Volume 78.3 fL (80.0-100.0)
[2024-04-26 04:35] LABS: Alanine Aminotransferase 19 U/L (7-40); Alkaline Phosphatase 40 U/L (46-116); Anion Gap 9 (5-15); Aspartate Aminotransferase 16 U/L (13-40); BUN/Creatinine Ratio 6.1 (10.0-20.0); Blood Urea Nitrogen 12 mg/dL (9-23); Calcium 7.9 mg/dL (8.7-10.4); Carbon Dioxide 21 mmol/L (20-30); Chloride 110 mmol/L (98-107); Glucose 154 mg/dL (74-106); Magnesium 1.6 mg/dL (1.6-2.6); Potassium 5.3 mmol/L (3.5-5.1); Sodium 140 mmol/L (136-145)
[2024-04-26 04:36] LABS: Bilirubin, Total 0.3 mg/dL (0.2-1.0); Hematocrit 35.9 % (41.0-53.0); Monocytes # (auto) 1.1 10 ^3/uL (0-1.3); Monocytes % (auto) 4.8 % (0.0-12.0); Neutrophils # (auto) 20.2 10 ^3/uL (1.6-8.6); Neutrophils % (auto) 92.2 % (37.0-80.0); Phosphorus 5.2 mg/dL (2.4-5.1); Platelet Count (auto) 263 10^3/uL (140-450); Red Blood Cells 4.58 10^6/uL (4.5-5.90); Total Protein 5.2 g/dL (5.7-8.2); White Blood Cell 21.9 10^3/uL (4.4-10.8)
[2024-04-26 04:56] LABS: Red Cell Distribution Width 21.2 % (11.8-14.3)
[2024-04-26] MEDS ORDERED: VANCOMYCIN PER PHARMACY 0 MG IV SCH ×2 (05:30→09:00)
[2024-04-26] MEDS: VANCOMYCIN 1GM/200ML 200 ML IV ONE ×2 (06:00→07:46)
[2024-04-26 07:43] LABS: Base Excess -5.5 mmol/L (-2.0-2.0)
[2024-04-26] MEDS ORDERED: VANCOMYCIN 1GM/200ML 200 ML IV ONE (09:00)
[2024-04-26 10:05] LABS: Urine Bacteria None Seen /hpf (None Seen)
[2024-04-26 10:40] LABS: Urine Blood 3+ /uL (Negative); Urine Clarity Turbid (Clear); Urine Color Yellow (Yellow); Urine Mucus FEW (None Seen); Urine Protein, UAD 1+ (Negative); Urine Urobilinogen Normal (Negative); Urine WBC 21 /hpf (0 - 3)
[2024-04-26] MEDS: MEROPENEM 1GM IVPB 50 ML IV SCH ×2 (15:58→23:00)
[2024-04-26] MEDS: MAGNESIUM SULFATE 1GM/100ML 100 ML IV ONE (16:39)
[2024-04-26] MEDS ORDERED: VANCOMYCIN 500 MG in D5W 5% 100 ML IV ONE (18:00)
[2024-04-26] MEDS: FUROSEMIDE 40 MG/4 ML VIAL IV ONE (18:27)
[2024-04-26] MEDS: TPN PER PHARMACY IV NR (20:19)
[2024-04-27] VITALS (109 sets, daily range): BP systolic 81–140; BP diastolic 43–67; PULSE 84–113; RESP 14–20; TEMP 98.3–100.8; O2SAT 93–100
[2024-04-27 04:07] LABS: Alanine Aminotransferase 12 U/L (7-40); Albumin 2.5 g/dL (3.2-4.8); Alkaline Phosphatase 42 U/L (46-116); Anion Gap 4 (5-15); Aspartate Aminotransferase 9 U/L (13-40); BUN/Creatinine Ratio 15.3 (10.0-20.0); Blood Urea Nitrogen 13 mg/dL (9-23); Calcium 7.7 mg/dL (8.7-10.4); Carbon Dioxide 26 mmol/L (20-30); Chloride 109 mmol/L (98-107); Glucose 167 mg/dL (74-106); Magnesium 1.8 mg/dL (1.6-2.6); Sodium 139 mmol/L (136-145)
[2024-04-27 04:08] LABS: Bilirubin, Total 0.2 mg/dL (0.2-1.0); Total Protein 4.5 g/dL (5.7-8.2)
[2024-04-27 06:56] LABS: Basophils # (auto) 0 10 ^3/uL (0-0.2); Basophils % (auto) 0.1 % (0.0-2.0); Eosinophils # (auto) 0.1 10 ^3/uL (0-0.8); Hematocrit 27.7 % (41.0-53.0); Hemoglobin 8.6 g/dL (13.5-17.5); Lymphocytes # (auto) 0.6 10 ^3/uL (0.4-5.4); Lymphocytes % (auto) 4.2 % (10.0-50.0); Mean Corpuscular Hemoglobin 23.6 pg (28.0-32.0); Mean Corpuscular Volume 76.2 fL (80.0-100.0); Monocytes # (auto) 0.8 10 ^3/uL (0-1.3); Monocytes % (auto) 5.7 % (0.0-12.0); Neutrophils # (auto) 12.2 10 ^3/uL (1.6-8.6); Platelet Count (auto) 192 10^3/uL (140-450); Red Blood Cells 3.64 10^6/uL (4.5-5.90); White Blood Cell 13.7 10^3/uL (4.4-10.8)
[2024-04-27 06:58] LABS: Red Cell Distribution Width 20.3 % (11.8-14.3)
[2024-04-27 07:44] LABS: Base Excess -3.4 mmol/L (-2.0-2.0)
[2024-04-27] MEDS: VANCOMYCIN 1GM/200ML 200 ML IV ONE (08:14)
[2024-04-27] MEDS: SODIUM PHOSPHATES 20 MEQ in SODIUM CHL 0.9% 100 ML IV ONE (10:37)
[2024-04-27] MEDS: PROPOFOL 100 ML IV SCH (14:09)
[2024-04-27] MEDS: FUROSEMIDE 20 MG/2 ML VIAL IV SCH (17:32)
[2024-04-27] MEDS: TPN PER PHARMACY IV NR (20:00)
[2024-04-28] VITALS (104 sets, daily range): BP systolic 57–156; BP diastolic 46–102; PULSE 73–121; RESP 11–24; TEMP 98.1–99; O2SAT 93–100
[2024-04-28 04:15] LABS: Alanine Aminotransferase 10 U/L (7-40); Albumin 2.4 g/dL (3.2-4.8); Alkaline Phosphatase 42 U/L (46-116); Anion Gap 4 (5-15); Aspartate Aminotransferase 11 U/L (13-40); BUN/Creatinine Ratio 22.7 (10.0-20.0); Blood Urea Nitrogen 15 mg/dL (9-23); Calcium 7.4 mg/dL (8.7-10.4); Carbon Dioxide 26 mmol/L (20-30); Chloride 109 mmol/L (98-107); Glucose 165 mg/dL (74-106); Magnesium 1.8 mg/dL (1.6-2.6); Potassium 3.6 mmol/L (3.5-5.1); Sodium 139 mmol/L (136-145)
[2024-04-28 04:16] LABS: Bilirubin, Total 0.2 mg/dL (0.2-1.0); Phosphorus 1.5 mg/dL (2.4-5.1); Total Protein 4.3 g/dL (5.7-8.2)
[2024-04-28 06:58] LABS: Basophils # (auto) 0 10 ^3/uL (0-0.2); Basophils % (auto) 0.2 % (0.0-2.0); Eosinophils # (auto) 0.1 10 ^3/uL (0-0.8); Lymphocytes # (auto) 0.5 10 ^3/uL (0.4-5.4)
[2024-04-28 07:03] LABS: Eosinophils % (auto) 0.8 % (0.0-7.0); Lymphocytes % (auto) 5.8 % (10.0-50.0); Mean Corpuscular Hemoglobin 24.4 pg (28.0-32.0); Mean Corpuscular Hgb Conc. 32.1 g/dL (32.0-36.0); Monocytes # (auto) 0.8 10 ^3/uL (0-1.3); Monocytes % (auto) 8.8 % (0.0-12.0); Neutrophils # (auto) 7.9 10 ^3/uL (1.6-8.6); Neutrophils % (auto) 84.4 % (37.0-80.0); Nucleated Red Blood Cells % 0.1 %; Platelet Count (auto) 162 10^3/uL (140-450); White Blood Cell 9.4 10^3/uL (4.4-10.8)
[2024-04-28 07:04] LABS: Red Cell Distribution Width 21.1 % (11.8-14.3)
[2024-04-28 07:25] LABS: Base Excess -0.4 mmol/L (-2.0-2.0)
[2024-04-28] MEDS: VANCOMYCIN 1GM/200ML 200 ML IV SCH (09:53)
[2024-04-28] MEDS: POTASSIUM PHOSPHATE 26.4 MEQ in SODIUM CHL 0.9% 100 ML IV ONE (10:06)
[2024-04-28] MEDS: TPN PER PHARMACY IV NR (20:24)
[2024-04-29] VITALS (103 sets, daily range): BP systolic 77–145; BP diastolic 40–78; PULSE 69–100; RESP 10–35; TEMP 96.6–100.8; O2SAT 93–100
[2024-04-29 04:03] LABS: Albumin 2.3 g/dL (3.2-4.8); Alkaline Phosphatase 42 U/L (46-116); Aspartate Aminotransferase < 8 U/L (13-40); BUN/Creatinine Ratio 25.5 (10.0-20.0); Bilirubin, Total 0.2 mg/dL (0.2-1.0); Blood Urea Nitrogen 14 mg/dL (9-23); Calcium 7.3 mg/dL (8.7-10.4); Chloride 106 mmol/L (98-107); Glucose 189 mg/dL (74-106); Magnesium 1.8 mg/dL (1.6-2.6); Phosphorus 2.3 mg/dL (2.4-5.1); Potassium 3.4 mmol/L (3.5-5.1); Sodium 138 mmol/L (136-145); Total Protein 4.2 g/dL (5.7-8.2); Triglycerides 113 mg/dL (< 150)
[2024-04-29 04:15] LABS: Alanine Aminotransferase < 9 U/L (7-40)
[2024-04-29 04:22] LABS: Anion Gap 4 (5-15); Carbon Dioxide 28 mmol/L (20-30)
[2024-04-29 07:17] LABS: Base Excess 2.7 mmol/L (-2.0-2.0)
[2024-04-29] MEDS: POTASSIUM CHL 20MEQ/100ML 100 ML IV ONE (09:23)
[2024-04-29] MEDS: ACETAMINOPHEN 650 MG RECT SUPP PR PRN (12:32)
[2024-04-29] MEDS: POTASSIUM PHOSPHATE 26.4 MEQ in SODIUM CHL 0.9% 100 ML IV ONE (14:32)
[2024-04-29] MEDS: TPN PER PHARMACY IV NR (19:59)
[2024-04-30] VITALS (107 sets, daily range): BP systolic 74–138; BP diastolic 41–73; PULSE 73–94; RESP 16–30; TEMP 98.6–99.9; O2SAT 97–100
[2024-04-30 04:19] LABS: Alanine Aminotransferase 11 U/L (7-40); Alkaline Phosphatase 49 U/L (46-116); Anion Gap 3 (5-15); BUN/Creatinine Ratio 23.2 (10.0-20.0); Blood Urea Nitrogen 13 mg/dL (9-23); Calcium 7.7 mg/dL (8.7-10.4); Carbon Dioxide 31 mmol/L (20-30); Chloride 105 mmol/L (98-107); Glucose 157 mg/dL (74-106); Potassium 3.5 mmol/L (3.5-5.1); Sodium 139 mmol/L (136-145)
[2024-04-30 04:21] LABS: Albumin 2.4 g/dL (3.2-4.8); Aspartate Aminotransferase < 8 U/L (13-40); Bilirubin, Total 0.2 mg/dL (0.2-1.0); Phosphorus 2.8 mg/dL (2.4-5.1); Total Protein 4.3 g/dL (5.7-8.2)
[2024-04-30 08:49] LABS: Base Excess 2.5 mmol/L (-2.0-2.0)
[2024-04-30 14:27] LABS: Basophils # (auto) 0 10 ^3/uL (0-0.2); Eosinophils # (auto) 0.1 10 ^3/uL (0-0.8); Eosinophils % (auto) 0.9 % (0.0-7.0); Hematocrit 24.3 % (41.0-53.0); Hemoglobin 7.8 g/dL (13.5-17.5); Lymphocytes # (auto) 0.7 10 ^3/uL (0.4-5.4); Mean Corpuscular Hemoglobin 23.7 pg (28.0-32.0); Mean Corpuscular Volume 73.6 fL (80.0-100.0); Platelet Count (auto) 174 10^3/uL (140-450)
[2024-04-30 14:29] LABS: Basophils % (auto) 0.1 % (0.0-2.0); Lymphocytes % (auto) 10.2 % (10.0-50.0); Mean Corpuscular Hgb Conc. 32.1 g/dL (32.0-36.0); Monocytes # (auto) 0.9 10 ^3/uL (0-1.3); Monocytes % (auto) 12.5 % (0.0-12.0); Neutrophils # (auto) 5.5 10 ^3/uL (1.6-8.6); Neutrophils % (auto) 76.3 % (37.0-80.0); Nucleated Red Blood Cells % 0.2 %; Red Cell Distribution Width 21.3 % (11.8-14.3); White Blood Cell 7.2 10^3/uL (4.4-10.8)
[2024-04-30] MEDS ORDERED: ENOXAPARIN SOD 30 MG/0.3 ML SYRINGE SC ONE (16:15)
[2024-04-30] MEDS: ENOXAPARIN SOD 40 MG/0.4 ML SYRINGE SC ONE (17:51)
[2024-04-30] MEDS: TPN PER PHARMACY IV NR (20:09)
[2024-05-01] VITALS (108 sets, daily range): BP systolic 88–154; BP diastolic 49–89; PULSE 69–116; RESP 16–83; TEMP 98.3–102.4; O2SAT 95–100
[2024-05-01] MEDS: DexmedeTOMIDine 4 ML IV ONE (02:37)
[2024-05-01 04:28] LABS: Basophils # (auto) 0 10 ^3/uL (0-0.2); Basophils % (auto) 0.2 % (0.0-2.0); Eosinophils # (auto) 0.1 10 ^3/uL (0-0.8); Mean Corpuscular Hemoglobin 23.9 pg (28.0-32.0)
[2024-05-01 04:31] LABS: Eosinophils % (auto) 1.5 % (0.0-7.0); Hematocrit 23.1 % (41.0-53.0); Hemoglobin 7.5 g/dL (13.5-17.5); Lymphocytes # (auto) 0.9 10 ^3/uL (0.4-5.4); Lymphocytes % (auto) 12.6 % (10.0-50.0); Mean Corpuscular Hgb Conc. 32.6 g/dL (32.0-36.0); Mean Corpuscular Volume 73.5 fL (80.0-100.0); Monocytes # (auto) 0.9 10 ^3/uL (0-1.3); Monocytes % (auto) 12.4 % (0.0-12.0); Neutrophils # (auto) 5.5 10 ^3/uL (1.6-8.6); Neutrophils % (auto) 73.3 % (37.0-80.0); Nucleated Red Blood Cells % 0.2 %; Platelet Count (auto) 178 10^3/uL (140-450); Red Blood Cells 3.15 10^6/uL (4.5-5.90); White Blood Cell 7.5 10^3/uL (4.4-10.8)
[2024-05-01 04:45] LABS: Alkaline Phosphatase 63 U/L (46-116); Anion Gap 3 (5-15); BUN/Creatinine Ratio 20.7 (10.0-20.0); Blood Urea Nitrogen 12 mg/dL (9-23); Calcium 7.7 mg/dL (8.7-10.4); Carbon Dioxide 32 mmol/L (20-30); Chloride 105 mmol/L (98-107); Glucose 161 mg/dL (74-106); Potassium 3.3 mmol/L (3.5-5.1); Sodium 140 mmol/L (136-145)
[2024-05-01 04:46] LABS: Alanine Aminotransferase < 9 U/L (7-40); Magnesium 2.1 mg/dL (1.6-2.6)
[2024-05-01 04:47] LABS: Albumin 2.6 g/dL (3.2-4.8); Aspartate Aminotransferase 9 U/L (13-40); Bilirubin, Total 0.2 mg/dL (0.2-1.0); Phosphorus 2.9 mg/dL (2.4-5.1); Total Protein 4.7 g/dL (5.7-8.2)
[2024-05-01 06:48] LABS: Base Excess 4.5 mmol/L (-2.0-2.0)
[2024-05-01] MEDS ORDERED: POTASSIUM CHLORIDE 40 MEQ, LIDOCAINE 1% (LOCAL ANESTH.) 4 ML in SODIUM CHL 0.9% 250 ML IV ONE (07:30)
[2024-05-01] MEDS: POTASSIUM CHL 20MEQ/100ML 100 ML IV SCH (08:10)
[2024-05-01] MEDS: ENOXAPARIN SOD 40 MG/0.4 ML SYRINGE SC SCH (08:14)
[2024-05-01] MEDS ORDERED: ENOXAPARIN SOD 30 MG/0.3 ML SYRINGE SC SCH (10:00)
[2024-05-01] MEDS ORDERED: VANCOMYCIN 1.25GM/250ML 250 ML IV SCH (10:00)
[2024-05-01] MEDS: VANCOMYCIN 1.25GM/250ML 250 ML IV SCH (10:19)
[2024-05-01] MEDS: FUROSEMIDE 20 MG/2 ML VIAL IV ONE (10:39)
[2024-05-01] MEDS: FUROSEMIDE 20 MG/2 ML VIAL ONE (10:39)
[2024-05-01] MEDS: TPN PER PHARMACY IV NR (20:39)
[2024-05-02] VITALS (111 sets, daily range): BP systolic 90–215; BP diastolic 49–95; PULSE 70–124; RESP 17–33; TEMP 98.5–100.9; O2SAT 91–100
[2024-05-02] MEDS: PHENYLEPHRINE HCL 10 MG/ML VL ONE (00:05)
[2024-05-02] MEDS: PHENYLEPHRINE IV 250 ML IV ONE (00:06)
[2024-05-02 04:50] LABS: Alanine Aminotransferase 10 U/L (7-40); Albumin 2.5 g/dL (3.2-4.8); Alkaline Phosphatase 61 U/L (46-116); Anion Gap 4 (5-15); Aspartate Aminotransferase 19 U/L (13-40); Blood Urea Nitrogen 14 mg/dL (9-23); Calcium 7.5 mg/dL (8.7-10.4); Carbon Dioxide 31 mmol/L (20-30); Chloride 103 mmol/L (98-107); Glucose 174 mg/dL (74-106); Magnesium 2.1 mg/dL (1.6-2.6); Potassium 3.7 mmol/L (3.5-5.1); Sodium 138 mmol/L (136-145)
[2024-05-02 04:52] LABS: Bilirubin, Total 0.3 mg/dL (0.2-1.0); Total Protein 5.1 g/dL (5.7-8.2)
[2024-05-02 07:00] LABS: Base Excess 5.4 mmol/L (-2.0-2.0)
[2024-05-02 07:50] LABS: Basophils # (auto) 0 10 ^3/uL (0-0.2); Eosinophils # (auto) 0.1 10 ^3/uL (0-0.8); Hemoglobin 7.7 g/dL (13.5-17.5); Lymphocytes # (auto) 0.7 10 ^3/uL (0.4-5.4)
[2024-05-02 07:52] LABS: Basophils % (auto) 0.1 % (0.0-2.0); Eosinophils % (auto) 1.2 % (0.0-7.0); Hematocrit 24.3 % (41.0-53.0); Lymphocytes % (auto) 8.1 % (10.0-50.0); Mean Corpuscular Hemoglobin 23.4 pg (28.0-32.0); Mean Corpuscular Hgb Conc. 31.5 g/dL (32.0-36.0); Mean Corpuscular Volume 74.3 fL (80.0-100.0); Monocytes # (auto) 0.8 10 ^3/uL (0-1.3); Monocytes % (auto) 8.5 % (0.0-12.0); Neutrophils # (auto) 7.5 10 ^3/uL (1.6-8.6); Neutrophils % (auto) 82.1 % (37.0-80.0); Nucleated Red Blood Cells % 0.1 %; Platelet Count (auto) 209 10^3/uL (140-450); Red Blood Cells 3.27 10^6/uL (4.5-5.90); Red Cell Distribution Width 21.9 % (11.8-14.3); White Blood Cell 9.2 10^3/uL (4.4-10.8)
[2024-05-02 14:42] LABS: Base Excess 6.2 mmol/L (-2.0-2.0)
[2024-05-02] MEDS: TPN PER PHARMACY IV NR (20:20)
[2024-05-03] VITALS (105 sets, daily range): BP systolic 86–202; BP diastolic 47–108; PULSE 65–136; RESP 14–46; TEMP 96.8–102; O2SAT 96–100
[2024-05-03 04:29] LABS: Basophils # (auto) 0 10 ^3/uL (0-0.2); Basophils % (auto) 0.2 % (0.0-2.0); Eosinophils # (auto) 0.2 10 ^3/uL (0-0.8); Eosinophils % (auto) 1.8 % (0.0-7.0); Lymphocytes # (auto) 0.6 10 ^3/uL (0.4-5.4); Monocytes # (auto) 0.7 10 ^3/uL (0-1.3); White Blood Cell 8.5 10^3/uL (4.4-10.8)
[2024-05-03 04:32] LABS: Hematocrit 21.4 % (41.0-53.0); Lymphocytes % (auto) 7.1 % (10.0-50.0); Mean Corpuscular Hemoglobin 23.7 pg (28.0-32.0); Mean Corpuscular Hgb Conc. 32.1 g/dL (32.0-36.0); Monocytes % (auto) 8.7 % (0.0-12.0); Neutrophils % (auto) 82.2 % (37.0-80.0); Platelet Count (auto) 185 10^3/uL (140-450); Red Blood Cells 2.89 10^6/uL (4.5-5.90)
[2024-05-03 04:35] LABS: Alanine Aminotransferase 11 U/L (7-40); Albumin 2.5 g/dL (3.2-4.8); Alkaline Phosphatase 53 U/L (46-116); Anion Gap 4 (5-15); Aspartate Aminotransferase 20 U/L (13-40); BUN/Creatinine Ratio 28.6 (10.0-20.0); Blood Urea Nitrogen 16 mg/dL (9-23); Calcium 7.5 mg/dL (8.7-10.4); Carbon Dioxide 30 mmol/L (20-30); Chloride 104 mmol/L (98-107); Glucose 165 mg/dL (74-106); Magnesium 2.3 mg/dL (1.6-2.6); Potassium 3.8 mmol/L (3.5-5.1); Sodium 138 mmol/L (136-145)
[2024-05-03 04:36] LABS: Bilirubin, Total 0.4 mg/dL (0.2-1.0); Phosphorus 3.2 mg/dL (2.4-5.1)
[2024-05-03 04:44] LABS: Hemoglobin 6.9 g/dL (13.5-17.5); Red Cell Distribution Width 21.5 % (11.8-14.3)
[2024-05-03 06:58] LABS: Anisocytosis Slight; Hypochromia Moderate; Platelet Estimate Adequate
[2024-05-03 09:39] LABS: Base Excess 5.5 mmol/L (-2.0-2.0)
[2024-05-03] MEDS: diphenhdrAMINE HCL 50 MG/1 ML VL IV ONE (13:00)
[2024-05-03] MEDS: diphenhdrAMINE HCL 50 MG/1 ML VL ONE (13:05)
[2024-05-03] MEDS: LABETALOL HCL 20 MG/4 ML VL IV ONE (13:38)
[2024-05-03] MEDS ORDERED: methylPREDNISolone SOD SUCC 40 MG/ML VL IM ONE (14:45)
[2024-05-03] MEDS: BUDESONIDE (INHALATION) 0.5 MG/2 ML NEB NEB ONE (14:45)
[2024-05-03] MEDS: BUDESONIDE (INHALATION) 0.5 MG/2 ML NEB ONE (14:53)
[2024-05-03] MEDS: IPRATROPIUM BROM 0.5 MG/2.5ML INH SOL ONE (14:53)
[2024-05-03] MEDS ORDERED: ACETAMINOPHEN IV 1000 MG/100ML (10MG/ML) IV PRN (16:15)
[2024-05-03] MEDS: methylPREDNISolone SOD SUCC 40 MG/ML VL ONE (17:03)
[2024-05-03] MEDS: MORPHINE SULFATE INJ 2 MG/ml SYRG IV PRN ×2 (17:10→21:52)
[2024-05-03] MEDS: FUROSEMIDE 40 MG/4 ML VIAL IV ONE (17:17)
[2024-05-03] MEDS: methylPREDNISolone SOD SUCC 40 MG/ML VL IV ONE (17:55)
[2024-05-03] MEDS: LORazepam 2MG/ML-1ML VIAL IV PRN (18:01)
[2024-05-03] MEDS: TPN PER PHARMACY IV NR (20:04)
[2024-05-03] MEDS: CEFEPIME 1GM/ 50ML 50 ML IV SCH (21:50)
[2024-05-03] MEDS: BUDESONIDE (INHALATION) 0.5 MG/2 ML NEB NEB SCH (23:04)
[2024-05-04] VITALS (101 sets, daily range): BP systolic 109–191; BP diastolic 58–95; PULSE 100–132; RESP 16–44; TEMP 98.3–100; O2SAT 88–100
[2024-05-04] MEDS: ALBUMIN 5% 250 ML IV ONE ×2 (01:10→02:15)
[2024-05-04 01:53] LABS: Basophils # (auto) 0 10 ^3/uL (0-0.2); Eosinophils # (auto) 0 10 ^3/uL (0-0.8); Hemoglobin 8.7 g/dL (13.5-17.5); Lymphocytes # (auto) 0.3 10 ^3/uL (0.4-5.4); Monocytes # (auto) 0.2 10 ^3/uL (0-1.3); Neutrophils # (auto) 11.9 10 ^3/uL (1.6-8.6); White Blood Cell 12.5 10^3/uL (4.4-10.8)
[2024-05-04 01:54] LABS: Hematocrit 27.6 % (41.0-53.0); Lymphocytes % (auto) 2.6 % (10.0-50.0); Mean Corpuscular Hemoglobin 23.2 pg (28.0-32.0); Mean Corpuscular Hgb Conc. 31.5 g/dL (32.0-36.0); Mean Corpuscular Volume 73.8 fL (80.0-100.0); Monocytes % (auto) 1.9 % (0.0-12.0); Neutrophils % (auto) 95.5 % (37.0-80.0); Nucleated Red Blood Cells % 0.1 %; Platelet Count (auto) 285 10^3/uL (140-450); Red Blood Cells 3.74 10^6/uL (4.5-5.90)
[2024-05-04 01:55] LABS: Red Cell Distribution Width 21.1 % (11.8-14.3)
[2024-05-04 02:08] LABS: Alanine Aminotransferase 15 U/L (7-40); Alkaline Phosphatase 81 U/L (46-116); Anion Gap 6 (5-15); BUN/Creatinine Ratio 22.9 (10.0-20.0); Blood Urea Nitrogen 16 mg/dL (9-23); Calcium 8.2 mg/dL (8.7-10.4); Carbon Dioxide 29 mmol/L (20-30); Chloride 103 mmol/L (98-107); Glucose 262 mg/dL (74-106); Magnesium 2.3 mg/dL (1.6-2.6); Potassium 4.4 mmol/L (3.5-5.1); Sodium 138 mmol/L (136-145); Triglycerides 148 mg/dL (< 150)
[2024-05-04 02:09] LABS: Albumin 3.2 g/dL (3.2-4.8); Aspartate Aminotransferase 24 U/L (13-40); Phosphorus 3.3 mg/dL (2.4-5.1)
[2024-05-04 02:10] LABS: Bilirubin, Total 0.5 mg/dL (0.2-1.0); Total Protein 6.2 g/dL (5.7-8.2)
[2024-05-04] MEDS: dilTIAZem 25 MG/5 ML VIAL IV ONE (06:06)
[2024-05-04] MEDS: LABETALOL HCL 5 MG/ML ML 20ML VIAL IV PRN (08:33)
[2024-05-04 08:56] LABS: Triglycerides 154 mg/dL (< 150)
[2024-05-04 08:57] LABS: LDL Cholesterol 64 mg/dL (< 100)
[2024-05-04 08:58] LABS: Cholesterol 103 mg/dL (< 200); HDL Cholesterol 15 mg/dL (40-59)
[2024-05-04] MEDS: TPN PER PHARMACY IV NR (21:11)
[2024-05-04] MEDS: ACETAMINOPHEN 325 MG TAB PO PRN (23:43)
[2024-05-05] VITALS (44 sets, daily range): BP systolic 117–186; BP diastolic 59–98; PULSE 83–122; RESP 18–39; TEMP 97.8–98.6; O2SAT 92–100
[2024-05-05 04:51] LABS: Basophils # (auto) 0 10 ^3/uL (0-0.2); Eosinophils # (auto) 0.2 10 ^3/uL (0-0.8); Eosinophils % (auto) 1.6 % (0.0-7.0); Lymphocytes # (auto) 1.1 10 ^3/uL (0.4-5.4)
[2024-05-05 04:53] LABS: Basophils % (auto) 0.1 % (0.0-2.0); Hematocrit 25.2 % (41.0-53.0); Lymphocytes % (auto) 8.3 % (10.0-50.0); Mean Corpuscular Hemoglobin 23.5 pg (28.0-32.0); Mean Corpuscular Hgb Conc. 31.8 g/dL (32.0-36.0); Mean Corpuscular Volume 73.9 fL (80.0-100.0); Monocytes # (auto) 0.9 10 ^3/uL (0-1.3); Platelet Count (auto) 310 10^3/uL (140-450); Red Blood Cells 3.41 10^6/uL (4.5-5.90); White Blood Cell 13.2 10^3/uL (4.4-10.8)
[2024-05-05 04:59] LABS: Alanine Aminotransferase 23 U/L (7-40); Alkaline Phosphatase 83 U/L (46-116); Anion Gap 5 (5-15); BUN/Creatinine Ratio 31.7 (10.0-20.0); Blood Urea Nitrogen 20 mg/dL (9-23); Calcium 8.4 mg/dL (8.7-10.4); Carbon Dioxide 27 mmol/L (20-30); Chloride 107 mmol/L (98-107); Magnesium 2.4 mg/dL (1.6-2.6); Potassium 4.3 mmol/L (3.5-5.1); Sodium 139 mmol/L (136-145)
[2024-05-05 05:00] LABS: Albumin 3.3 g/dL (3.2-4.8); Aspartate Aminotransferase 24 U/L (13-40); Bilirubin, Total 0.5 mg/dL (0.2-1.0); Phosphorus 4.3 mg/dL (2.4-5.1); Total Protein 6.3 g/dL (5.7-8.2)
[2024-05-05 05:07] LABS: Red Cell Distribution Width 21.4 % (11.8-14.3)
[2024-05-05 05:11] LABS: Glucose 157 mg/dL (74-106)
[2024-05-05 08:06] LABS: PSA Free 0.13 ng/mL; Prostate Specific Antigen 3.8 ng/mL (0.0-4.0)
[2024-05-05] MEDS: IPRATROPIUM BROM 0.5 MG/2.5ML INH SOL NEB PRN (18:49)
[2024-05-06] VITALS (16 sets, daily range): BP systolic 104–152; BP diastolic 33–92; PULSE 83–109; RESP 17–41; TEMP 98–100.4; O2SAT 91–100
[2024-05-06 05:23] LABS: Alanine Aminotransferase 34 U/L (7-40); Albumin 3.5 g/dL (3.2-4.8); Alkaline Phosphatase 88 U/L (46-116); Anion Gap 9 (5-15); Aspartate Aminotransferase 26 U/L (13-40); BUN/Creatinine Ratio 23.5 (10.0-20.0); Bilirubin, Total 0.7 mg/dL (0.2-1.0); Blood Urea Nitrogen 19 mg/dL (9-23); Calcium 8.5 mg/dL (8.7-10.4); Carbon Dioxide 24 mmol/L (20-30); Chloride 106 mmol/L (98-107); Glucose 156 mg/dL (74-106); Potassium 4.2 mmol/L (3.5-5.1); Sodium 139 mmol/L (136-145); Total Protein 6.6 g/dL (5.7-8.2)
[2024-05-06 05:24] LABS: Basophils # (auto) 0.3 10 ^3/uL (0-0.2); Basophils % (auto) 1.4 % (0.0-2.0); Eosinophils # (auto) 0.3 10 ^3/uL (0-0.8); Eosinophils % (auto) 1.6 % (0.0-7.0); Hematocrit 27.9 % (41.0-53.0); Hemoglobin 8.5 g/dL (13.5-17.5); Lymphocytes # (auto) 1.6 10 ^3/uL (0.4-5.4); Mean Corpuscular Hgb Conc. 30.5 g/dL (32.0-36.0); Mean Corpuscular Volume 75.2 fL (80.0-100.0); Monocytes # (auto) 1.2 10 ^3/uL (0-1.3); Monocytes % (auto) 6.1 % (0.0-12.0); Neutrophils # (auto) 16.4 10 ^3/uL (1.6-8.6); Neutrophils % (auto) 82.9 % (37.0-80.0); Nucleated Red Blood Cells % 0.1 %; Platelet Count (auto) 398 10^3/uL (140-450); Red Blood Cells 3.71 10^6/uL (4.5-5.90); Red Cell Distribution Width 21.9 % (11.8-14.3); White Blood Cell 19.8 10^3/uL (4.4-10.8)
[2024-05-06] MEDS ORDERED: OXYCODONE W/ ACETAMINOPHEN 5/325MG TABLET PO PRN (08:45)
[2024-05-06] MEDS ORDERED: traMADol HCL 50 MG TAB PO PRN (08:45)
[2024-05-06] MEDS: ACETAMINOPHEN 325 MG TAB PO PRN (16:39)
[2024-05-07] VITALS (13 sets, daily range): BP systolic 114–139; BP diastolic 57–74; PULSE 87–110; RESP 18–20; TEMP 97.9–99.3; O2SAT 93–99
[2024-05-07 05:05] LABS: Urine Bacteria None Seen /hpf (None Seen)
[2024-05-07 05:11] LABS: Urine Blood TRACE /uL (Negative); Urine Clarity Clear (Clear); Urine Color Yellow (Yellow); Urine Hyaline Cast FEW /lpf (0 - 2); Urine Mucus FEW (None Seen); Urine Protein, UAD 1+ (Negative); Urine Specific Gravity 1.026 (1.001-1.035); Urine Urobilinogen Normal (Negative); Urine WBC 4 /hpf (0 - 3); Urine pH 5.5 (5.0-9.0)
[2024-05-07 06:39] LABS: Basophils # (auto) 0 10 ^3/uL (0-0.2); Basophils % (auto) 0.4 % (0.0-2.0); Eosinophils # (auto) 0.4 10 ^3/uL (0-0.8); Eosinophils % (auto) 3.7 % (0.0-7.0); Hematocrit 24.9 % (41.0-53.0); Hemoglobin 7.5 g/dL (13.5-17.5); Lymphocytes # (auto) 1.2 10 ^3/uL (0.4-5.4); Lymphocytes % (auto) 10.9 % (10.0-50.0); Mean Corpuscular Hemoglobin 23.4 pg (28.0-32.0); Mean Corpuscular Hgb Conc. 30.2 g/dL (32.0-36.0); Mean Corpuscular Volume 77.7 fL (80.0-100.0); Monocytes # (auto) 0.9 10 ^3/uL (0-1.3); Monocytes % (auto) 7.8 % (0.0-12.0); Neutrophils # (auto) 8.8 10 ^3/uL (1.6-8.6); Neutrophils % (auto) 77.2 % (37.0-80.0); Nucleated Red Blood Cells % 0.1 %; Platelet Count (auto) 402 10^3/uL (140-450); Red Cell Distribution Width 22.2 % (11.8-14.3); White Blood Cell 11.4 10^3/uL (4.4-10.8)
[2024-05-07 07:05] LABS: Alanine Aminotransferase 24 U/L (7-40); Albumin 3.1 g/dL (3.2-4.8); Alkaline Phosphatase 76 U/L (46-116); Anion Gap 5 (5-15); Aspartate Aminotransferase 21 U/L (13-40); BUN/Creatinine Ratio 18.4 (10.0-20.0); Bilirubin, Total 0.5 mg/dL (0.2-1.0); Blood Urea Nitrogen 14 mg/dL (9-23); Calcium 8.5 mg/dL (8.7-10.4); Carbon Dioxide 23 mmol/L (20-30); Chloride 108 mmol/L (98-107); Glucose 115 mg/dL (74-106); Potassium 3.8 mmol/L (3.5-5.1); Sodium 136 mmol/L (136-145)
[2024-05-07] MEDS ORDERED: BICA50TA42 PO (18:50)
[2024-05-07] MEDS ORDERED: DICY20TA PO (18:51)
[2024-05-07] MEDS ORDERED: OMEP1CAP70 PO (18:52)
[2024-05-07] MEDS ORDERED: BICA50TA41 PO (18:53)
[2024-05-07] MEDS ORDERED: LISI-706 PO (18:56)
[2024-05-08] VITALS (14 sets, daily range): BP systolic 115–133; BP diastolic 60–75; PULSE 68–103; RESP 16–21; TEMP 98–99; O2SAT 94–100
[2024-05-08 06:51] LABS: Hemoglobin 7.8 g/dL (13.5-17.5); Lymphocytes # (auto) 1.2 10 ^3/uL (0.4-5.4); Lymphocytes % (auto) 13.8 % (10.0-50.0); Monocytes # (auto) 0.8 10 ^3/uL (0-1.3)
[2024-05-08 06:55] LABS: Basophils # (auto) 0 10 ^3/uL (0-0.2); Basophils % (auto) 0.5 % (0.0-2.0); Eosinophils # (auto) 0.4 10 ^3/uL (0-0.8); Eosinophils % (auto) 5.1 % (0.0-7.0); Hematocrit 25.3 % (41.0-53.0); Mean Corpuscular Hemoglobin 24.2 pg (28.0-32.0); Mean Corpuscular Hgb Conc. 30.7 g/dL (32.0-36.0); Mean Corpuscular Volume 78.7 fL (80.0-100.0); Monocytes % (auto) 8.6 % (0.0-12.0); Neutrophils # (auto) 6.3 10 ^3/uL (1.6-8.6); Platelet Count (auto) 452 10^3/uL (140-450); Red Blood Cells 3.22 10^6/uL (4.5-5.90); White Blood Cell 8.7 10^3/uL (4.4-10.8)
[2024-05-08 07:00] LABS: Red Cell Distribution Width 21.6 % (11.8-14.3)
[2024-05-08 07:07] LABS: Alanine Aminotransferase 28 U/L (7-40); Alkaline Phosphatase 67 U/L (46-116); Anion Gap 7 (5-15); BUN/Creatinine Ratio 17.6 (10.0-20.0); Blood Urea Nitrogen 13 mg/dL (9-23); Calcium 8.1 mg/dL (8.7-10.4); Carbon Dioxide 23 mmol/L (20-30); Chloride 107 mmol/L (98-107); Glucose 110 mg/dL (74-106); Potassium 3.6 mmol/L (3.5-5.1); Sodium 137 mmol/L (136-145)
[2024-05-08 07:08] LABS: Albumin 3.2 g/dL (3.2-4.8); Aspartate Aminotransferase 22 U/L (13-40)
[2024-05-08 07:09] LABS: Bilirubin, Total 0.5 mg/dL (0.2-1.0); Total Protein 6.4 g/dL (5.7-8.2)
[2024-05-08 08:36] LABS: Anisocytosis Slight; Platelet Estimate Increased
[2024-05-09] VITALS (12 sets, daily range): BP systolic 113–128; BP diastolic 66–80; PULSE 84–113; RESP 17–18; TEMP 97.9–99; O2SAT 95–100
[2024-05-09 05:01] LABS: Eosinophils # (auto) 0.4 10 ^3/uL (0-0.8); Hemoglobin 7.6 g/dL (13.5-17.5); Lymphocytes # (auto) 1.1 10 ^3/uL (0.4-5.4); Mean Corpuscular Hgb Conc. 31.5 g/dL (32.0-36.0)
[2024-05-09 05:03] LABS: Basophils # (auto) 0.1 10 ^3/uL (0-0.2); Basophils % (auto) 0.6 % (0.0-2.0); Eosinophils % (auto) 4.5 % (0.0-7.0); Hematocrit 24.1 % (41.0-53.0); Lymphocytes % (auto) 13.6 % (10.0-50.0); Mean Corpuscular Hemoglobin 24.2 pg (28.0-32.0); Monocytes # (auto) 0.7 10 ^3/uL (0-1.3); Neutrophils # (auto) 6.1 10 ^3/uL (1.6-8.6); Neutrophils % (auto) 73.3 % (37.0-80.0); Nucleated Red Blood Cells % 0.1 %; Platelet Count (auto) 443 10^3/uL (140-450); Red Blood Cells 3.12 10^6/uL (4.5-5.90); White Blood Cell 8.3 10^3/uL (4.4-10.8)
[2024-05-09 05:07] LABS: Chloride 107 mmol/L (98-107); Potassium 3.6 mmol/L (3.5-5.1); Sodium 136 mmol/L (136-145)
[2024-05-09 05:08] LABS: Anion Gap 3 (5-15); Carbon Dioxide 26 mmol/L (20-30)
[2024-05-09 05:09] LABS: Calcium 8.4 mg/dL (8.7-10.4)
[2024-05-09 05:13] LABS: Glucose 112 mg/dL (74-106)
[2024-05-09 05:14] LABS: BUN/Creatinine Ratio 14.9 (10.0-20.0); Blood Urea Nitrogen 11 mg/dL (9-23)
[2024-05-09] MEDS: IOHEXOL 350 MG/ML 100ML IJ ONE (09:18)
[2024-05-10] VITALS (10 sets, daily range): BP systolic 102–130; BP diastolic 47–76; PULSE 84–102; RESP 18–20; TEMP 98–99.5; O2SAT 96–100
[2024-05-10 06:33] LABS: Basophils # (auto) 0 10 ^3/uL (0-0.2); Eosinophils # (auto) 0.3 10 ^3/uL (0-0.8); Neutrophils # (auto) 4.8 10 ^3/uL (1.6-8.6)
[2024-05-10 06:35] LABS: Basophils % (auto) 0.7 % (0.0-2.0); Chloride 107 mmol/L (98-107); Eosinophils % (auto) 4.4 % (0.0-7.0); Hematocrit 23.8 % (41.0-53.0); Hemoglobin 7.5 g/dL (13.5-17.5); Lymphocytes # (auto) 1.1 10 ^3/uL (0.4-5.4); Lymphocytes % (auto) 15.4 % (10.0-50.0); Mean Corpuscular Hemoglobin 24.5 pg (28.0-32.0); Mean Corpuscular Hgb Conc. 31.7 g/dL (32.0-36.0); Mean Corpuscular Volume 77.1 fL (80.0-100.0); Monocytes # (auto) 0.6 10 ^3/uL (0-1.3); Neutrophils % (auto) 70.5 % (37.0-80.0); Nucleated Red Blood Cells % 0.1 %; Platelet Count (auto) 463 10^3/uL (140-450); Potassium 3.4 mmol/L (3.5-5.1); Red Blood Cells 3.08 10^6/uL (4.5-5.90); Sodium 139 mmol/L (136-145); White Blood Cell 6.9 10^3/uL (4.4-10.8)
[2024-05-10 06:36] LABS: Anion Gap 8 (5-15); Calcium 8.3 mg/dL (8.7-10.4); Carbon Dioxide 24 mmol/L (20-30)
[2024-05-10 06:41] LABS: BUN/Creatinine Ratio 11.6 (10.0-20.0); Blood Urea Nitrogen 8 mg/dL (9-23); Glucose 112 mg/dL (74-106)
[2024-05-10 06:55] LABS: Red Cell Distribution Width 22.7 % (11.8-14.3)
[2024-05-10] MEDS: POTASSIUM EFFERVESENT TAB 25 MEQ PO ONE (09:08)
== END 2024-05-10 13:15 | disposition home or self-care (01) | DRG 853 ==
LOC: ER 16:59 → OVERFLOW 23:24 → CENTRAL 04-20 00:57 → ICU WEST 04-25 13:20 → DOU IN ICU 05-05 13:41 → TELE-WESTW 05-06 17:47
PROVIDERS: ADMIT Internal Medicine Geriatric Medicine; ATTEND Internal Medicine Geriatric Medicine
PROC: 0D9670Z Drainage of Stomach with Drainage Device, Via Natural or Artificial Opening (ICD-10-PCS; 2024-04-19)
PROC: 0DB98ZX Excision of Duodenum, Via Natural or Artificial Opening Endoscopic, Diagnostic (ICD-10-PCS; 2024-04-22)
PROC: 0DB68ZX Excision of Stomach, Via Natural or Artificial Opening Endoscopic, Diagnostic (ICD-10-PCS; 2024-04-22)
PROC: 0DBL8ZX Excision of Transverse Colon, Via Natural or Artificial Opening Endoscopic, Diagnostic (ICD-10-PCS; 2024-04-22)
PROC: 0DBN8ZZ Excision of Sigmoid Colon, Via Natural or Artificial Opening Endoscopic (ICD-10-PCS; 2024-04-22)
PROC: 02HV33Z Insertion of Infusion Device into Superior Vena Cava, Percutaneous Approach (ICD-10-PCS; 2024-04-23)
PROC: B548ZZA Ultrasonography of Superior Vena Cava, Guidance (ICD-10-PCS; 2024-04-23)
PROC: 0BH17EZ Insertion of Endotracheal Airway into Trachea, Via Natural or Artificial Opening (ICD-10-PCS; 2024-04-25)
PROC: 5A1955Z Respiratory Ventilation, Greater than 96 Consecutive Hours (ICD-10-PCS; 2024-04-25)
PROC: 0DTF0ZZ Resection of Right Large Intestine, Open Approach (ICD-10-PCS; principal; 2024-04-25 09:19)
PROC: 02HV33Z Insertion of Infusion Device into Superior Vena Cava, Percutaneous Approach (ICD-10-PCS; 2024-04-26)
PROC: B548ZZA Ultrasonography of Superior Vena Cava, Guidance (ICD-10-PCS; 2024-04-26)
PROC: 03HY32Z Insertion of Monitoring Device into Upper Artery, Percutaneous Approach (ICD-10-PCS; 2024-04-26)
PROC: 0B978ZZ Drainage of Left Main Bronchus, Via Natural or Artificial Opening Endoscopic (ICD-10-PCS; 2024-04-28)
PROC: 30233N1 Transfusion of Nonautologous Red Blood Cells into Peripheral Vein, Percutaneous Approach (ICD-10-PCS; 2024-05-03)
PROC: 05HF33Z Insertion of Infusion Device into Left Cephalic Vein, Percutaneous Approach (ICD-10-PCS; 2024-05-07)
PROC: B54NZZA Ultrasonography of Left Upper Extremity Veins, Guidance (ICD-10-PCS; 2024-05-07)
DX: A41.9 Sepsis, unspecified organism (principal); J96.01 Acute respiratory failure with hypoxia; N17.0 Acute kidney failure with tubular necrosis; K65.9 Peritonitis, unspecified; C18.9 Malignant neoplasm of colon, unspecified; K56.609 Unspecified intestinal obstruction, unspecified as to partial versus complete obstruction; R18.8 Other ascites; N39.0 Urinary tract infection, site not specified; E87.4 Mixed disorder of acid-base balance; I82.611 Acute embolism and thrombosis of superficial veins of right upper extremity; Z68.41 Body mass index [BMI] 40.0-44.9, adult; C18.4 Malignant neoplasm of transverse colon; E87.5 Hyperkalemia; I12.9 Hypertensive chronic kidney disease with stage 1 through stage 4 chronic kidney disease, or unspecified chronic kidney disease; K29.70 Gastritis, unspecified, without bleeding; K44.9 Diaphragmatic hernia without obstruction or gangrene; K62.89 Other specified diseases of anus and rectum; K74.60 Unspecified cirrhosis of liver; N18.9 Chronic kidney disease, unspecified; T83.018A Breakdown (mechanical) of other urinary catheter, initial encounter; D64.9 Anemia, unspecified; E11.22 Type 2 diabetes mellitus with diabetic chronic kidney disease; E66.01 Morbid (severe) obesity due to excess calories; K64.8 Other hemorrhoids; E83.51 Hypocalcemia; E88.09 Other disorders of plasma-protein metabolism, not elsewhere classified; K62.1 Rectal polyp; Z92.3 Personal history of irradiation; Z85.118 Personal history of other malignant neoplasm of bronchus and lung; Z83.3 Family history of diabetes mellitus; Z82.49 Family history of ischemic heart disease and other diseases of the circulatory system; Z68.35 Body mass index [BMI] 35.0-35.9, adult; Z80.1 Family history of malignant neoplasm of trachea, bronchus and lung; Z85.46 Personal history of malignant neoplasm of prostate; Z90.79 Acquired absence of other genital organ(s); Y84.8 Other medical procedures as the cause of abnormal reaction of the patient, or of later complication, without mention of misadventure at the time of the procedure; Y92.89 Other specified places as the place of occurrence of the external cause; R16.0 Hepatomegaly, not elsewhere classified
CPT/HCPCS: 36415; 36569; 36600; 70450; 71045; 71275; 74176; 74250; 76775; 76856; 80048; 80053; 80061; 80202; 81001; 82306; 82378; 82607; 82805; 82962; 83036; 83605; 83690; 83735; 84100; 84154; 84443; 84478; 84484; 85025; 85379; 85610; 85730; 86301; 86850; 86900; 86901; 86920; 87040; 87070; 87077; 87081; 87086; 87186; 87205; 92610; 93005; 93970; 93971; 94002; 94003; 94640; 96361; 96374; 96375; 97110; 97116; 97163; 97530; G0378; J0330; J1815; J2001; J2185; J2250; J2405; J2470; J2704; J3480; J3490; J7060